=== PATIENT | female | born 1930 | race Caucasian/White ===

== ENCOUNTER 2020-01-26 11:39 | Observation (INO) ==
[2020-01-26 12:07] LABS: Bilirubin,Urine Negative (Negative); Blood,Urine Negative (Negative); Clarity,Urine Clear (Clear); Color,Urine Yellow (Yellow); Glucose,Urine (UA) Normal (Normal); Ketones,Urine Negative (Negative); Leukocyte Esterase,Urine Negative (Negative); Nitrite,Urine Negative (Negative); Protein,Urine 30 mg/dL (Neg-Trace); Urobilinogen,Urine Normal (Normal)
[2020-01-26 12:12] LABS: Basophils % 0.1 %; Eosinophils % 0.4 %; Hematocrit 40.9 % (35.3-44.9); Hemoglobin 14.8 g/dL (11.5-15.4); Immature Granulocytes % 0.3 % (0-4); Lymphocytes # 1.2 K/mcL (0.6-4.6); Mean Corpuscular HGB Conc 36.2 g/dL (31.6-35.5); Mean Corpuscular Hemoglobin 31.5 pg (28.0-33.3); Mean Platelet Volume 8.7 fL (9.4-12.4); Monocytes # 1.1 K/mcL (0.0-1.3); Neutrophils # 6.6 K/mcL (1.6-8.9); Platelet Count 284 K/mcL (140-400); Red Cell Distribution Width 12.7 % (11.5-14.5); Segmented Neutrophils % 74.2 %
[2020-01-26 12:16] LABS: Amorphous Sediment,Urine Few per hpf (None-Few); Granular Casts,Urine Few per lpf (None Seen); Mucus,Urine Few per lpf (None-Few); WBC,Urine 0-3 per hpf (0-3)
[2020-01-26 12:34] LABS: Alanine Aminotransferase 18 Units/L (7-52); Albumin 4.6 g/dL (3.5-5.7); Albumin/Globulin Ratio 1.5 (1.1-2.2); Alkaline Phosphatase 53 Units/L (34-104); Aspartate Amino Transferase 25 Units/L (13-39); BUN/Creatinine Ratio 9 (6-26); Bilirubin,Total 0.7 mg/dL (0.3-1.0); Blood Urea Nitrogen 6 mg/dL (8-23); Calcium 9.9 mg/dL (8.6-10.3); Carbon Dioxide 28 mEq/L (23-29); Chloride 84 mEq/L (98-107); Glucose 129 mg/dL (70-105); Osmolality,Calculated 249 (280-300); Potassium 3.9 mEq/L (3.5-5.1); Sodium 120 mEq/L (136-145); Total Protein 7.6 g/dL (6.4-8.9); eGFR For African Americans > 60 (> 60); eGFR For Non-African Americans > 60 (> 60)
[2020-01-26] MEDS ORDERED: 0.9 % Sodium Chloride 1,000 ML IV ONE ×2 (13:01→13:20)
[2020-01-26] MEDS ORDERED: Acetaminophen 325 MG TABLET PO PRN (13:18)
[2020-01-26] MEDS ORDERED: Naloxone 0.4 MG/ML INJ IVP PRN (13:18)
[2020-01-26] MEDS ORDERED: Ondansetron ODT 4 MG TAB.RAPDIS SL PRN (13:18)
[2020-01-27 01:49] LABS: Basophils % 0.3 %; Eosinophils # 0.1 K/mcL (0.0-0.6); Eosinophils % 1.7 %; Hematocrit 37.5 % (35.3-44.9); Hemoglobin 13.5 g/dL (11.5-15.4); Immature Granulocytes % 0.8 % (0-4); Lymphocytes # 1.6 K/mcL (0.6-4.6); Lymphocytes % 23.6 %; Mean Corpuscular Hemoglobin 31.5 pg (28.0-33.3); Mean Corpuscular Volume 87.4 fL (83.0-100.0); Mean Platelet Volume 8.9 fL (9.4-12.4); Monocytes % 15.2 %; Neutrophils # 3.9 K/mcL (1.6-8.9); Platelet Count 261 K/mcL (140-400); Red Blood Count 4.29 M/mcL (3.82-4.97); Segmented Neutrophils % 58.4 %; White Blood Count 6.6 K/mcL (4.3-11.1)
[2020-01-27 01:56] LABS: BUN/Creatinine Ratio 13 (6-26); Blood Urea Nitrogen 8 mg/dL (8-23); Carbon Dioxide 25 mEq/L (23-29); Chloride 95 mEq/L (98-107); Glucose 105 mg/dL (70-105); Magnesium 2.1 mg/dL (1.6-2.6); Osmolality,Calculated 263 (280-300); Potassium 3.5 mEq/L (3.5-5.1); Sodium 127 mEq/L (136-145); eGFR For African Americans > 60 (> 60); eGFR For Non-African Americans > 60 (> 60)
[2020-01-27 06:43] VITALS: BP 187/87
[2020-01-27] MEDS ORDERED: lisinopriL 5 MG TABLET PO SCH (09:00)
[2020-01-27] MEDS ORDERED: Aspirin Enteric Coated 81 MG Tablet PO SCH (09:00)
== END 2020-01-27 09:09 | disposition home or self-care (01) ==
LOC: EMEROOPIK 11:39 → INPPIK 11:39
PROVIDERS: ADMIT Family Medicine; ATTEND Family Medicine